=== PATIENT | male | born 1960 | race Caucasian/White ===

== ENCOUNTER 2024-10-22 00:51 | Inpatient (IN) | payer BC, SELFPAY ==
[2024-10-22] VITALS (20 sets, daily range): BP systolic 121–151; BP diastolic 77–90; PULSE 50–68; RESP 18–28; TEMP 36.2–36.6; O2SAT 85–92; BMI 25.8; BMI 25.2
--- OUTSIDE RECORDS SUMMARY | 2024-10-22 00:53 | XMS_ITS | Clinical Summary ---
Author Organization [facility] Address [place], [place] [address] Care Team Providers Care Customer Experience Intern Name Role Phone Pcp, No Primary Care Provider Unavailabl e Allergies No known active allergies Medications CPAPIndications :LAURENCE (obstructive sleep apnea) CPAP machine for home use at pressure:10 cm/H2O, Heated humidifier x 1 every 5 years, Humidifier chamber x 1 every 6 months, Full face mask with cushion x 1 every 3 months, Full face cushion 1 every month, 1 headgear 1 every 6 month, standard tubing x 1 every 3 months, Filters: Disposable filter x 2 a month, non-disposable filters x1 every 6 months; chinstrap 1 every 6 months Length of Need: 99 months, Frequency of use: Daily 1 Device 11 0 Active CPAPIndications :Obstructive sleep apnea CPAP machine for home use at pressure: 10 cmw , Heated humidifier x 1 q 5 yr, Humidifier chamber x 1 q 6 mo, Full face mask x1 q 3mos, with cushion x 1 q mo, Heated tubing x 1 q 3 mo, Headgear x 1 q 6 mo, Filters: Disposable x 2 q mo non-disposable filters x1 q 6mo, Length of Need: 99 months, Frequency of use: Daily 1 Device 11 0 Active Active Problems Problem Noted Date Diagnosed Date LAURENCE 04/26/2009 AHI-40 07/23/2009 Tobacco use disorder 04/13/2009 Allergic rhinitis, cause unspecified 04/13/2009 Immunizations Name Administration Dates Next Due Td (Age >=7 Years) 02/05/2009 Family History Medical History Relation Name Comments Good Health Brother Good Health Father Good Health Mother Good Health Sister Relation Name Status Comments Brother Alive Father Alive Maternal Grandfather diabete s Maternal Grandmother pancrea tic cancer? Mother Paternal Grandfather lung ca ncer Paternal Grandmother unsure Sister Alive Social History Tobacco Use Types Packs/Day Years Used Date Smoking Tobacco: Every Day Cigarettes 1 30 Started: 06/07/1979; Last attempted to quit: 06/07/2009 Smokeless Tobacco: Never Tobacco Cessation:Ready to Q uit: Yes; Counseling Given: Yes Comments:started again Alcohol Use Standard Drinks/Week Comments Yes 0 (1 standard drink = 0.6 oz pur e alcohol) 2-3 drinks a month PHQ-2 Answer Date Recorded PHQ-2 Score 2 11/06/2018 Social Connections Answer Date Recorded Frequency of Communication with Friends and Fami ly Not on file 09/07/2021 Financial Resource Strain Answer Date R ecorded Difficulty of Paying Living Expenses Not on file 09/07/2021 Difficulty of Paying Living Expenses Not on file 09/07/2021 Sex and Gender Information Value Date Recorded Sex Assigned at Not on file Legal Sex Male 5:24 AM SQL REPORT ANALYST Gender Identity Not on file Sexual Orientation Not on file 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 Not on file Not on file Obstetrics History Last Filed Vital Signs Vital Sign Reading Time Taken Comments Blood Pressure 120/64 10/27/2019 7:35 AM SQL REPORT ANALYST Pulse 62 10/27/2019 7:35 AM SQL REPORT ANALYST Temperature 36.6 C (97.8 F) 10/27/2019 7:35 AM SQL REPORT ANALYST Respiratory Rate 12 12/11/2017 10:3 7 AM CDT Oxygen Saturation 98% 10/27/2019 7:35 AM SQL REPORT ANALYST Inhaled Oxygen Concentration - - Weight 72.5 kg (159 lb 12.8 oz) 10/27/2019 7:35 AM SQL REPORT ANALYST Height 167 cm (5' 5.75) 08/26/2019 8:25 AM SQL REPORT ANALYST Body Mass Index 25.99 08/26/2019 8:25 AM SQL REPORT ANALYST Plan of Treatment Health Maintenance Due Date Last Done Comments Tdap 1973 HIV for age 15-65 1977 Hepatitis C screening for age 18-79 1980 Colonoscopy through age 75 11/20/2007 Pneumococcal series for age 50+ (1 of 1 - PCV) 2012 Zoster (shingles) series for age 50+ (1 of 2) 2012 Lipids for age 45-75 04/24/2014 04/24/2009 Depression screening for age 12+ 12/11/2018 12/11/2017 Tetanus booster 02/05/2019 02/05/2009 BMI (ht and wt on same day) for age 18+ 08/26/2020 08/26/2019, 12/11/2017, 08/17/2017, Additional history exists COVID-19 vaccine series (2023- season) 2024 Influenza for age 50-64 05/08/2024 RSV vaccine for adults or (1 - 1-dose 75+ series) 2037 Pneumococcal series for age 6-49 Aged Out No longer eligible based on patient's age to complete this topic Procedures Procedure Name Priority Date/Time Associated Diagnosis Comments LIPID PANEL W REFLEX MEASURED LDL Routine 04/24/2009 7:52 AM CDT Lipid Screening from Last 3 Months or Most Recently Relevant to Health Maintenance Results * (ABNORMAL) LIPID PANEL W REFLEX MEASURED LDL (04/24/2009 7:52 AM CDT) CHOLESTEROL,TOTAL 177 110 - 199 mg/dL [facility] TRIGLYCERIDES 91 <150 mg/dL [facility] HDL CHOLESTEROL 39(L) >40 mg/dL [facility] CHOL/HDL RATIO 4.54(H) <4.51 [facility] LDL CHOLESTEROL 120 <131 mg/dL [facility] PATIENT STATUS Fasting [facility] Blood specimen (specimen) BLOOD SPECIMEN / Unknown 04/24/2009 7:52 AM CDT 04/24/2009 7:47 AM CDT us Salima Tidwell DO CHEMISTRY Final Resu lt [facility] [address] [place] [address] from Last 3 Months or Most Recently Relevant to Health Maintenance Insurance [employer] Care Teams Customer Experience Intern Relationship Specialty Start Date End Date Pcp, No . PCP - General 11/03/13
--- NOTE | 2024-10-22 01:09 | ED.GENADULT ---
HPI - General Adult General Date Seen: 10/22/24 Chief complaint: Shortness of Breath/Dyspnea Stated complaint: Difficulty breathing, bronchitis Time Seen by Provider: 10/22/24 00:54 History of Present Illness HPI narrative: Patient is a 63-year-old male here with his for evaluation of cough and difficulty breathing. He has been having problems for couple of weeks now, initially had fevers reported though he is not sure of what his actual temperature was. He has a nonproductive cough, was seen in urgent care 4 days ago, diagnosed with bronchitis and put on azithromycin, prednisone and given an inhaler. He reports no improvement with those medications, in fact he feels like he is more short of breath. He has been sleeping sitting completely upright because when he lays down he feels like he can not breathe. He has not had any lower extremity swelling or pain, has not had any pleuritic chest pain, no exertional chest pain, no continued fevers. He quit smoking a few weeks ago, he notes that he quit smoking a couple of months ago and felt really poorly after that so he about a pack of cigarettes and felt improved, but says he has not resumed smoking after this last bout of quitting. He denies prior history of asthma, COPD, or cardiovascular disease. He denies any medications. Related Data Previous Rx's ?Medication ?Instructions ?Recorded albuterol sulfate 90 mcg/actuation 2 puff inhalation Q6H PRN 10/18/24 aerosol inhaler shortness of breath or wheezing #8.5 grams azithromycin 250 mg tablet See Rx Instructions PO .COMPLEX #6 10/18/24 tabs prednisone 20 mg tablet 40 mg (2 x 20 mg) PO QDAY 5 days 10/18/24 #10 tabs Allergies Allergy/AdvReac Type Severity Reaction Status Date / Time No Known Drug Allergies Allergy Verified 10/18/24 13:21 Review of Systems Status of ROS: Reports: 10 or more systems reviewed and unremarkable except as noted in History and below PFSH PFS Social History Smoking Status: Former smoker What tobacco products do you use: cigarettes Smoking packs per day: 2 Smoking cigarettes per day: 40.0 Years smoked: 40 Smoking pack-years: 80.00 Smoking quit date/years: <= 15 years ago Do you use any of these nicotine containing products: None Second hand tobacco smoke exposure: No How often do you have a drink containing alcohol: never How often do you have six or more drinks on one occasion: Never AUDIT-C Alcohol total score: 0 Non-prescribed substance use: denies use service: No Exam Narrative: Exam Narrative: Vital signs reviewed In general, alert, nontoxic male. He is sitting upright, breathing comfortably. Head: Normocephalic, atraumatic. Eyes: Sclera clear. Pupils equal and reactive. ENT: Mucous membranes moist. Neck: Supple without adenopathy. Heart: Regular rate and rhythm without murmur. Lungs: He has a few crackles at his left base. Overall breath sounds are little bit diminished but not markedly so. There is no wheezing, no increased work of breathing. Abdomen: Soft, nontender to palpation. Extremities: Well perfused, pulses intact. No significant edema. Neurologic: Alert, conversant. Speech fluent, face symmetric. Moves all extremities equally. Skin: Warm, dry well perfused. Affect: Normal. Const: Vital Signs, click to edit/add: Vital Signs - 24 hr 10/22/24 00:54 10/22/24 01:00 10/22/24 01:05 Temperature 97.8 F 97.8 F Pulse Rate [Right Radial] 53 L 53 L Respiratory Rate 28 H 28 H Blood Pressure [Ri ght Upper Arm] 144/90 H 144/90 H Pulse Oximetry 88 85 L 91 Oxygen Delivery Me thod Room Air Room Air Oxygen Flow Rate 10/22/24 01:07 10/22/24 01:08 10/22/24 01:17 Temperature Pulse Rate [Right Radial] Respiratory Rate Blood Pressure [Ri ght Upper Arm] Pulse Oximetry 88 88 89 Oxygen Delivery Me thod Room Air Nasal Cannula Nasal Cannula Oxygen Flow Rate 1 2 Course Course ED Course: He is noted to be hypoxic here with O2 sats in the 85-88% on room air. His lungs are relatively clear, I do not hear significant bronchospasm. Will evaluate more broadly for pneumonia, congestive heart failure, PE, or other possible contributors. It is possible that he has residual effects after influenza or other viral process, recent smoking cessation may be contributing as well. Will try DuoNeb here, of hypoxia is not improved may need admission for oxygenation until improving. Chest x-ray by my review did not show consolidation. Radiology reads this as showing a little bit of basilar atelectasis no other acute findings. He was positive for flu A. His labs otherwise are all reviewed and only pertinent findings are mildly elevated CRP of 2.6. His troponin D-dimer both negative. I gave him a DuoNeb, this did not improve his oxygenation. He does feel significantly better on 2 L of oxygen which brought his O2 sats to 91-92%. I suspect he has some underlying COPD with an exacerbation related to his recent influenza. I gave him Solu-Medrol here. He is not improved on home therapies I do think would benefit from admission for oxygen therapy. I think continuing his azithromycin make sense from an antibiotic standpoint, I do not see evidence here of a significant bacterial consolidation. He does not have a fever or an elevated white blood cell count. Discussed with [facility] for admission to the hospitalist service. Vital Signs Vital signs: Initial Vital Signs Temperature 97.8 F 10/22/24 00:54 Temperature Source Temporal Artery Scan 10/22/24 00:54 Pulse Rate 53 L 10/22/24 00:54 Pulse Rhythm Regular 10/22/24 00:54 Respiratory Rate 28 H 10/22/24 00:54 Blood Pressure 144/90 H 10/22/24 00:54 Blood Pressure Mean 108 H 10/22/24 00:54 Pulse Oximetry 88 10/22/24 00:54 Oxygen Delivery Method Room Air 10/22/24 00:54 Vital Signs Temperature 97.8 F 10/22/24 00:54 Pulse Rate 53 L 10/22/24 00:54 Respiratory Rate 28 H 10/22/24 00:54 Blood Pressure 144/90 H 10/22/24 00:54 Pulse Oximetry 88 10/22/24 00:54 Oxygen Delivery Method Room Air 10/22/24 00:54 Temperature 97.8 F 10/22/24 01:00 Pulse Rate 53 L 10/22/24 01:00 Respiratory Rate 28 H 10/22/24 01:00 Blood Pressure 144/90 H 10/22/24 01:00 Pulse Oximetry 89 10/22/24 01:17 Oxygen Delivery Method Nasal Cannula 10/22/24 01:17 Oxygen Flow Rate 2 10/22/24 01:17 Medications Administered Medications: Generic Name Dose Route Start Last Admin Trade Name Freq PRN Reason Stop Dose Admin Albuterol/Ipratropium 1 neb 10/22/24 01:14 10/22/24 01:22 Iprat-Albut 0.5-2.5 Mg/3 Ml Neb IH 10/22/24 01:15 1 neb ONCE ONE Administration Medical Decision Making Lab Data Lab results reviewed: Yes I reviewed the patient's lab results Labs: Lab Results 10/22/24 10/22/24 Range/Units 00:15 01:06 WBC 10.59 (4.50-11.00) K/uL RBC 5.01 (4.30-5.90) m/uL Hgb 14.9 (13.5-17.5) gm/dL Hct 43.8 (37.0-53.0) % MCV 87 (80-100) fL MCH 30 (26-34) pg MCHC 34 (32-36) gm/dL RDW Coeff of Radha 12.4 (11.5-15.5) % Plt Count 345 (140-440) K/uL Neut % (Auto) 75.0 H (42.0-72.0) % Lymph % (Auto) 14.4 L (20-44) % Parke % (Auto) 9.4 (0.0-11.0) % Eos % (Auto) 0.0 (0.0-7.0) % Baso % (Auto) 0.1 (0.0-3.0) % Neut # (Auto) 7.90 H (1.7-7.0) K/uL Lymph # (Auto) 1.50 (0.90-2.90) K/uL Parke # (Auto) 1.00 H (0.00-0.90) K/UL Eos # (Auto) 0.00 (0.00-0.50) K/uL Baso # (Auto) 0.01 (0.00-0.30) K/uL Abs Immat Gran (auto) 0.12 (0.00-0.30) K/uL Imm/Tot Granulo (auto) 1.1 % D-Dimer Quant (PE/DVT) 0.35 (0.00-0.50) ug/ml VBG pH 7.461 H (7.32-7.43) VBG pCO2 33 L (40-50) mmHG VBG pO2 42.6 (25-47) mmHG VBG HCO3 24 (21-28) mmol/L Sodium 139 (135-149) mmol/L Potassium 3.9 (3.6-5.1) mmol/L Chloride 107 (96-114) mmol/L Carbon Dioxide 22 (20-32) mmol/L Anion Gap 10 (7-15) mEq/L BUN 26 (7-30) mg/dL Creatinine 1.0 (0.5-1.5) mg/dL Estimated Creat Clear 70.00 Estimated GFR 86 ml/min Glucose 113 (60-115) mg/dL Calcium 9.2 (8.4-10.6) mg/dL C-Reactive Protein 2.6 H (0.5-1.0) mg/dL NT-Pro-B Natriuret Pep 221 pg/mL SARS-CoV-2 (PCR) Negative SARS-CoV-2 (Negative) Influenza Type A (PCR) POSITIVE PCR FLU A A (Negative) Influenza Type B (PCR) Negative PCR FLU B (Negative) RSV (PCR) Negative PCR RSV (Negative) POC Troponin I 0.00 L (0.01-0.04) ng/ml Imaging Data Chest x-ray: Attestation: I have reviewed the pertinent imaging results. Radiologist's impression: Patient: Dao Malhotra MR#: [id number] : 1960 Acct:[id number] Loc: ED Service Date: 10/22/[address]: Ordering Physician: Marcia Khan M.D. Date of Service: 10/22/24 Procedure(s): XR chest 2V Accession Number(s): [id number] cc: Marcia Khan M.D.; Provider,Not a Local~ For Patients: As a result of the Cures Act, medical imaging exams and procedure reports are released immediately into your electronic medical record. You may view this report before your referring provider. If you have questions, please contact your health care provider. INDICATION: Shortness of breath. TECHNIQUE: Chest 2 views. COMPARISON: 10/18/2024. FINDINGS: Cardiovascular and mediastinum: Heart size and vasculature are normal in caliber and appearance. Lungs and pleural spaces: Mild bibasilar atelectasis. No consolidation. No pleural effusion or pneumothorax. Bones and soft tissues: Unremarkable for age. IMPRESSION: Mild bibasilar atelectasis. No consolidation. Dictated by Paolo Lehman MD @ 10/22/2024 1:36:07 AM Discharge Plan Discharge Clinical Impression: Hypoxic, Influenza A Patient Disposition: Admitted As Observation
[2024-10-22] MEDS: IPRAT-ALBUT 0.5-2.5 MG/3 ML NEB 1 NEB IH ×3 (01:22→11:36)
[2024-10-22 01:28] LABS: HCO3 VBG 24 mmol/L (21-28); PCO2 VBG 33 mmHG (40-50); PO2 VBG 42.6 mmHG (25-47); pH VBG 7.461 (7.32-7.43)
[2024-10-22 01:32] LABS: Basophils Absolute Auto 0.01 K/uL (0.00-0.30); Basophils Percent Auto 0.1 % (0.0-3.0); Hematocrit 43.8 % (37.0-53.0); Hemoglobin* 14.9 gm/dL (13.5-17.5); Immature Granulocytes Abs Auto 0.12 K/uL (0.00-0.30); Immature Granulocytes Pct Auto 1.1 %; Lymphocytes Percent Auto 14.4 % (20-44); Mean Corpuscular HGB Conc 34 gm/dL (32-36); Mean Corpuscular Hemoglobin 30 pg (26-34); Mean Corpuscular Volume 87 fL (80-100); Monocytes Percent Auto 9.4 % (0.0-11.0); Platelet Count* 345 K/uL (140-440); RDW Coefficient of Variation % 12.4 % (11.5-15.5); Red Blood Count 5.01 m/uL (4.30-5.90); White Blood Count* 10.59 K/uL (4.50-11.00)
--- OUTSIDE RECORDS SUMMARY | 2024-10-22 01:33 | XMS_ITS | Clinical Summary ---
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 Not on file Obstetrics History Last Filed Vital Signs Vital Sign Reading Time Taken Comments Blood Pressure 120/64 10/27/2019 7:35 AM CISCO UNIFIED COMMUNICATIONS ENGINEER Pulse 62 10/27/2019 7:35 AM CISCO UNIFIED COMMUNICATIONS ENGINEER Temperature 36.6 C (97.8 F) 10/27/2019 7:35 AM CISCO UNIFIED COMMUNICATIONS ENGINEER Respiratory Rate 12 12/11/2017 10:3 7 AM CDT Oxygen Saturation 98% 10/27/2019 7:35 AM CISCO UNIFIED COMMUNICATIONS ENGINEER Inhaled Oxygen Concentration - - Weight 72.5 kg (159 lb 12.8 oz) 10/27/2019 7:35 AM CISCO UNIFIED COMMUNICATIONS ENGINEER Height 167 cm (5' 5.75) 08/26/2019 8:25 AM CISCO UNIFIED COMMUNICATIONS ENGINEER Body Mass Index 25.99 08/26/2019 8:25 AM CISCO UNIFIED COMMUNICATIONS ENGINEER Plan of Treatment Health Maintenance Due Date [...] CHOLESTEROL,TOTAL 177 110 - 199 mg/dL [facility] TRIGLYCERIDES 91 <150 mg/dL [facility] HDL CHOLESTEROL 39(L) >40 mg/dL [facility] CHOL/HDL RATIO 4.54(H) <4.51 [facility] LDL CHOLESTEROL 120 <131 mg/dL [facility] PATIENT STATUS Fasting [facility] Blood specimen (specimen) BLOOD SPECIMEN / Unknown 04/24/2009 7:52 AM CDT 04/24/2009 7:47 AM CDT us Salima Tidwell DO CHEMISTRY Final Resu lt [facility] [address] [place] [address] from Last 3 Months or Most Recently Relevant to Health Maintenance Insurance [employer] Care Teams County Historian Relationship Specialty Start Date End Date Pcp, No . PCP - General 11/03/13
[2024-10-22 01:43] LABS: Chloride* 107 mmol/L (96-114); Potassium* 3.9 mmol/L (3.6-5.1); Sodium* 139 mmol/L (135-149)
[2024-10-22 01:45] LABS: Estimated Glomerular Filt Rate 86 ml/min
[2024-10-22 01:46] LABS: Anion Gap 10 mEq/L (7-15); Blood Urea Nitrogen* 26 mg/dL (7-30); Carbon Dioxide* 22 mmol/L (20-32); Glucose* 113 mg/dL (60-115)
[2024-10-22 01:47] LABS: Calcium* 9.2 mg/dL (8.4-10.6); Slide Review Reflex No
[2024-10-22 01:49] LABS: C Reactive Protein* 2.6 mg/dL (0.5-1.0)
[2024-10-22 01:56] LABS: D Dimer Quantitative* 0.35 ug/ml (0.00-0.50)
[2024-10-22 01:57] LABS: NT Pro B Type NatriureticPept* 221 pg/mL
[2024-10-22 02:11] LABS: PCR FLU A POSITIVE PCR FLU A (Negative); PCR FLU B Negative PCR FLU B (Negative); PCR RSV Negative PCR RSV (Negative); SARS PCR* Negative SARS-CoV-2 (Negative)
[2024-10-22] MEDS: METHYLPREDNISOLONE SOD SUCC 62.5 MG/ML (125) 125 MG IVP (02:41)
--- NOTE | 2024-10-22 03:09 | W.PM.TELEH&P ---
Telehealth- H&P: HPI History of Present Illness Date Seen: 10/22/24 Chief complaint: Difficulty breathing, bronchitis Narrative: Dao Malhotra is seen as an Interactive Telehealth visit. Dao Malhotra is a 63 year old male with history significant for smoking 2 packs/day x 40 years, who does not regularly follow-up with a doctor, presenting to emergency department with 2 weeks history of cough and shortness of breath. Patient reports his symptoms initially started with fever chills and cough about 2 weeks ago. He says initially the cough was pretty intense however currently is more dry. He says he noticed fever and chills in the first 2 days however has been afebrile since then. He says I have quit smoking since I got sick. He did go to urgent care on October 18, 2024 with complaints of cough and shortness of breath. At that time he was started on prednisone 40 mg, azithromycin and inhaler. He states his shortness of breath continued to get worse. He was also having chest pain with cough. He came into the emergency department for further evaluation. In the ER he was noted to be hypoxic with pulse ox in 85%. He was placed on 2 L oxygen and after that he felt a lot better. He was also given DuoNebs, Solu-Medrol in the emergency department. Workup in the emergency department showed WBC 10.5, hemoglobin 14.9, hematocrit 43.8, platelets 345. Blood gas showed VBG with pH of 7.461, pCO2 33, pO2 42, BMP showed sodium 139, potassium 3.9, chloride 107, bicarb 22, anion gap 10, BUN 26, creatinine 1.0, glucose 113, calcium 9.2, CRP 2.6, proBNP 221. His nasal swab came back positive for influenza A and negative for SARS-CoV-2, influenza B, RSV. Chest x-ray showed mild bibasilar atelectasis. No consolidation. Hospitalist service was asked admit the patient due to new onset hypoxia and ongoing tachypnea and shortness of breath. Review of Systems Narrative: Complete ROS was performed, pertinent positives and negatives per HPI. [facility] Social History (Updated 10/22/24 @ 02:37 by Marcia Khan MD) What is your current living situation?: I presently have a place to live Problems where you live: no known problems Problems where you live details: N/A In the past 12 months, utilities in danger of being shut off: no In past 12 months, lack of transportation kept you from medical appts, meetings, work, or getting things needed for daily living: no In the past 12 mos, have been you worried that your food would run out before you had money to buy more?: never true In the past 12 mos, the food you bought just didn't last and you didn't have money to buy more?: never true Highest level of school completed/degree received: high school graduate Smoking Status: Former smoker What tobacco products do you use: cigarettes Smoking packs per day: 2 Smoking cigarettes per day: 40.0 Years smoked: 40 Smoking pack-years: 80.00 Smoking quit date/years: <= 15 years ago Do you use any of these nicotine containing products: None Second hand tobacco smoke exposure: No How often do you have a drink containing alcohol: never How often do you have six or more drinks on one occasion: Never AUDIT-C Alcohol total score: 0 Non-prescribed substance use: denies use How often does anyone, including family, friends and others, physically hurt you: never How often does anyone, including family, friends and others, insult or talk down to you: never How often does anyone, including family, friends and others, threaten you with harm: never How often does anyone, including family, friends and others, scream or curse at you: never service: No Meds Home Medications and Allergies Allergies Allergy/AdvReac Type Severity Reaction Status Date / Time No Known Drug Allergies Allergy Verified 10/18/24 13:21 Exam Narrative Exam Narrative: Physical Exam GENERAL: ?vital signs reviewed. He appears in no acute distress. Able to talk in full sentences. HEENT: pupils are equal round and reactive to light NECK: Supple HEART: Regular rate and rhythm without any rubs, murmurs, or gallops. LUNGS: Clear to auscultation bilaterally with good air movement throughout ABDOMEN: Observation from nurse assisted exam, abdomen appears soft, nontender, and nondistended with Positive bowel sounds noted. EXTREMITIES: Strength and sensation is observed to be grossly within normal limits in the upper and lower extremities.? No focal strength deficit is observed. SKIN:? Observed warm and dry with color normal Const Vital Signs, click to edit/add: Vital Signs - 24 hr 10/22/24 00:54 10/22/24 01:00 10/22/24 01:05 Temperature 97.8 F 97.8 F Pulse Rate [Right Radial] 53 L 53 L Respiratory Rate 28 H 28 H Blood Pressure [Left Radial Artery] Blood Pressure [Right Upper Arm] 144/90 H 144/90 H Pulse Oximetry 88 85 L 91 Oxygen Delivery Method Room Air Room Air Oxygen Flow Rate 10/22/24 01:07 10/22/24 01:08 10/22/24 01:17 Temperature Pulse Rate [Right Radial] Respiratory Rate Blood Pressure [Left Radial Artery] Blood Pressure [Right Upper Arm] Pulse Oximetry 88 88 89 Oxygen Delivery Method Room Air Nasal Cannula Nasal Cannula Oxygen Flow Rate 1 2 10/22/24 02:52 10/22/24 02:52 10/22/24 02:54 Temperature 97.8 F 97.8 F Pulse Rate [Right Radial] 60 Respiratory Rate 28 H 24 28 H Blood Pressure [Left Radial Artery] 151/86 H Blood Pressure [Right Upper Arm] 135/88 Pulse Oximetry 90 91 89 Oxygen Delivery Method Nasal Cannula Nasal Cannula Nasal Cannula Oxygen Flow Rate 2 2 2 10/22/24 02:55 Temperature 97.8 F Pulse Rate [Right Radial] 60 Respiratory Rate 24 Blood Pressure [Left Radial Artery] Blood Pressure [Right Upper Arm] 135/88 Pulse Oximetry Oxygen Delivery Method Oxygen Flow Rate Hospitalist - H&P: Result Labs Labs: Short CBC 10/22/24 Range/Units 01:06 WBC 10.59 (4.50-11.00) K/uL Hgb 14.9 (13.5-17.5) gm/dL Hct 43.8 (37.0-53.0) % Plt Count 345 (140-440) K/uL BMP 10/22/24 01:06 Sodium 139 Potassium 3.9 Chloride 107 Carbon Dioxide 22 BUN 26 Creatinine 1.0 Glucose 113 Calcium 9.2 Assessment and Plan Assessment and plan (1) Influenza A: Status: Acute (2) Hypoxic: Status: Acute Plan Pt is 63 y/o M with h/o significant for Nicotine dependence, 2PPD x 40 years, presented to ED with c/o sob and cough. He was found to be hypoxic to 85%. # Influenza A Pneumonia # Acute hypoxia # COPD exac - pt doesn't have a diagnosis of COPD however clinically it appears that he may have COPD due to extensive h/o smoking. - cont with duonebs prn, solumedrol 40 mg q12 hours. - start on ceftriaxone and doxy. - he is likely outside the window for tamiflu at this point. - anti tussive medications. - wean oxygen as tolerated. # DVT proph - SQH Total Time Spent Total Time Spent: 55 Telehealth: Statement Statement Telehealth Visit: Today's History and Physical is provided via interactive telehealth by Ary Ralph MD.? Patient is located at [facility].? Provider is located at [facility].? Nursing staff assisted with the patient's exam. The visit being done today meets criteria for a telehealth visit and the patient or patient?s parent/guardian is aware the visit is a telehealth visit. Camera Start Time: 03:16 Camera End Time: 03:30
[2024-10-22] MEDS: BENZONATATE 100 MG CAPSULE PO (04:40)
[2024-10-22] MEDS: HEPARIN 5,000 UNIT/0.5 ML INJ 5000 UNIT SUBCUT ×2 (04:41→20:29)
[2024-10-22] MEDS: cefTRIAXone 2 GM in 0.9 % SODIUM CHLORIDE Mini-bag 100 ML IVPB (04:42)
[2024-10-22] MEDS: SODIUM CHLORIDE 0.9 % (FLUSH) 10 ML SYRINGE 5 ML IVF ×3 (04:51→20:29)
[2024-10-22] MEDS: 0.9 % SODIUM CHLORIDE 250 ml IV (04:53)
--- NOTE | 2024-10-22 05:11 | PC.NURSE ---
Shift note: Patient arrived on the floor at 0245 by a wheelchair. Alert and oriented on arrival. Reported of persistent dry cough and SOB for the past 4 days. O2 on arrival was 85% on RA. 2L of oxygen was set up to maintain the O2 above 90%. MD review through [facility] at 0345. Ipratropium neb and Benzonatate was given for cough SOB. Droplet precaution in place for influenza A infection. HOB elevated to about 45 degrees. Vitally stable. Pt has been in bed throughout the night. He had hard time sleeping. Other due medications given and charted.
[2024-10-22 08:12] LABS: Procalcitonin* 0.06 ng/mL (<0.50)
--- NOTE | 2024-10-22 08:35 | PM.IMPN1 ---
Progress Note: A&P Assessment and plan (1) Acute hypoxemic respiratory failure: Problem details: - likely multifactorial including influenza a, possible pneumonia, possible undiagnosed COPD (patient is a current 2 pack-a-day smoker for 40 years) - respiratory consult - supplemental oxygen to keep O2 sats around 90%, I reviewed his blood gas 1:00 a.m. which does not show any hypercapnia. Monitor for hypercapnia or symptoms of hypercapnia - Continue prn nebs Status: Acute (2) Influenza A: Problem details: - start tamiflu Status: Acute (3) Influenza with pneumonia: Problem details: No consolidations seen on x-ray, but patient is persistently hypoxic. Per patient this is day 7 of illness. White count is within normal limits and procalcitonin is not elevated. He was started on ceftriaxone and doxycycline overnight for presumed pneumonia. While I suspect this is a viral pneumonia, not bacterial, will continue IV antibiotics for total of 3 days if there is no indication to extend them. He was also started on methylprednisolone. Will transition to prednisone. Status: Suspected (4) Nicotine abuse: Problem details: - 2PPD x 40 years - stopped smoking when became ill last week. If develops cravings, will start nicotine patch Status: Acute Plan VTE prophylaxis with low-dose subcut heparin. Subjective Time Seen by Provider: 07:41 Date Seen: 10/22/24 Interval history: Uche continues to feel mildly dyspneic, weak, and poor appetite. No new complaints or concerns. Uche reports that he has been sick for 7 days. Exam Narrative: Exam Narrative: General: No acute distress. Appears unwell, but nontoxic. Awake, alert, oriented x3. No pallor. No jaundice. Mild bilateral conjunctivitis. Oropharynx: Clear. Mucous membranes moist. Cardiovascular: Regular rate and rhythm. No murmurs, gallops, or rubs. Respiratory: Course with rhonchi at the left lower lung field. No wheezes. Abdomen: Bowel sounds present. Soft, nondistended, nontender. Extremities: No lower extremity edema. Extremities are warm with good capillary refill. Const: Vital Signs, click to edit/add: Vital Signs - 24 hr 10/22/24 00:54 10/22/24 01:00 10/22/24 01:05 Temperature 97.8 F 97.8 F Pulse Rate [Right Radial] 53 L 53 L Respiratory Rate 28 H 28 H Blood Pressure [Le ft Radial Artery] Blood Pressure [Ri ght Upper Arm] 144/90 H 144/90 H Pulse Oximetry 88 85 L 91 Oxygen Delivery Me thod Room Air Room Air Oxygen Flow Rate 10/22/24 01:07 10/22/24 01:08 10/22/24 01:17 Temperature Pulse Rate [Right Radial] Respiratory Rate Blood Pressure [Le ft Radial Artery] Blood Pressure [Ri ght Upper Arm] Pulse Oximetry 88 88 89 Oxygen Delivery Me thod Room Air Nasal Cannula Nasal Cannula Oxygen Flow Rate 1 2 10/22/24 02:52 10/22/24 02:52 10/22/24 02:54 Temperature 97.8 F 97.8 F Pulse Rate [Right Radial] 60 Respiratory Rate 28 H 24 28 H Blood Pressure [Le ft Radial Artery] 151/86 H Blood Pressure [Ri ght Upper Arm] 135/88 Pulse Oximetry 90 91 89 Oxygen Delivery Me thod Nasal Cannula Nasal Cannula Nasal Cannula Oxygen Flow Rate 2 2 2 10/22/24 02:55 10/22/24 07:50 Temperature 97.8 F 98 F Pulse Rate [Right Radial] 60 Respiratory Rate 24 24 Blood Pressure [Le ft Radial Artery] 121/78 Blood Pressure [Ri ght Upper Arm] 135/88 Pulse Oximetry 90 Oxygen Delivery Me thod Nasal Cannula Oxygen Flow Rate 2 Labs Labs: Laboratory Results - last 24 hr 10/22/24 10/22/24 10/22/24 00:15 01:06 07:30 WBC 10.59 RBC 5.01 Hgb 14.9 Hct 43.8 MCV 87 MCH 30 MCHC 34 RDW Coeff of Radha 12.4 Plt Count 345 Neut % (Auto) 75.0 H Lymph % (Auto) 14.4 L Harding % (Auto) 9.4 Eos % (Auto) 0.0 Baso % (Auto) 0.1 Neut # (Auto) 7.90 H Lymph # (Auto) 1.50 Harding # (Auto) 1.00 H Eos # (Auto) 0.00 Baso # (Auto) 0.01 Abs Immat Gran (auto) 0.12 Imm/Tot Granulo (auto) 1.1 D-Dimer Quant (PE/DVT) 0.35 VBG pH 7.461 H VBG pCO2 33 L VBG pO2 42.6 VBG HCO3 24 Sodium 139 Potassium 3.9 Chloride 107 Carbon Dioxide 22 Anion Gap 10 BUN 26 Creatinine 1.0 Estimated Creat Clear 70.00 Estimated GFR 86 Glucose 113 Calcium 9.2 C-Reactive Protein 2.6 H NT-Pro-B Natriuret Pep 221 Procalcitonin 0.06 SARS-CoV-2 (PCR) Negative SARS-CoV-2 Influenza Type A (PCR) POSITIVE PCR FLU A A Influenza Type B (PCR) Negative PCR FLU B RSV (PCR) Negative PCR RSV POC Troponin I 0.00 L Ordering Physician: Marcia Khan M.D. Date of Service: 10/22/24 Procedure(s): XR chest 2V Accession Number(s): [id number] cc: Marcia Khan M.D.; Provider,Not a Local~ For Patients: As a result of the Cures Act, medical imaging exams and procedure reports are released immediately into your electronic medical record. You may view this report before your referring provider. If you have questions, please contact your health care provider. INDICATION: Shortness of breath. TECHNIQUE: Chest 2 views. COMPARISON: 10/18/2024. FINDINGS: Cardiovascular and mediastinum: Heart size and vasculature are normal in caliber and appearance. Lungs and pleural spaces: Mild bibasilar atelectasis. No consolidation. No pleural effusion or pneumothorax. Bones and soft tissues: Unremarkable for age. IMPRESSION: Mild bibasilar atelectasis. No consolidation. Dictated by Paolo Lehman MD @ 10/22/2024 1:36:07 AM (Electronically Signed)
[2024-10-22] MEDS: OSELTAMIVIR PHOSPHATE 75 MG CAPSULE PO ×2 (10:19→20:28)
[2024-10-22] MEDS: DOXYCYCLINE HYCLATE 100 MG PO ×2 (10:20→20:29)
--- NOTE | 2024-10-22 11:25 | RESP.RT ---
Pt seen. In bed watching TV. BBS diminished, but clear, no wheezing. 2L NC SPO2 89% PT says it is hard to catch his breath and it feels heavy. 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 Reports he wears a mask if he remembers. Pt would benefit from full out pt pulmonary work up, including PFTs. Plan to attempt to wean oxygen as tolerates, keeping SPO2 90-94 % at this time. RN has given pt aerobika. 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
[2024-10-22] MEDS: GUAIF/DM 200-20 MG/20 ML 118 ML LIQUID 5 ML PO (11:41)
--- NOTE | 2024-10-22 15:39 | RESP.RT ---
Pt has episodes where he becomes short of breath. ie going to and returning from bathroom. He notes to me that he cannot do a flight of stairs when he feels good. He needs to stopo and catch his breath. Looking like undiagnosed COPD with influenza A at this time. Keep SPO2 90-94%
[2024-10-22] MEDS: LORazepam 0.5 MG TABLET PO (20:29)
[2024-10-23 02:11] VITALS: BP 134/89; PULSE 58; RESP 18; TEMP 36.6; O2SAT 92
[2024-10-23] MEDS: cefTRIAXone 2 GM in 0.9 % SODIUM CHLORIDE Mini-bag 100 ML IVPB (04:28)
[2024-10-23 06:19] LABS: HCO3 VBG 22 mmol/L (21-28); PCO2 VBG 31 mmHG (40-50); PO2 VBG 59.3 mmHG (25-47); pH VBG 7.467 (7.32-7.43)
[2024-10-23 07:07] VITALS: PULSE 53
[2024-10-23] MEDS: NICOTINE 21 MG PATCH 1 PATCH TRANSDERMA (08:00)
[2024-10-23 08:15] VITALS: BP 134/102; PULSE 54; RESP 20; TEMP 36.6; O2SAT 92
[2024-10-23] MEDS: DOXYCYCLINE HYCLATE 100 MG PO ×2 (08:37→20:16)
[2024-10-23] MEDS: OSELTAMIVIR PHOSPHATE 75 MG CAPSULE PO ×2 (08:37→20:16)
[2024-10-23] MEDS: predniSONE 20 MG TABLET 40 MG PO (08:37)
[2024-10-23] MEDS: IPRAT-ALBUT 0.5-2.5 MG/3 ML NEB 1 NEB IH ×2 (08:38→15:12)
[2024-10-23] MEDS: HEPARIN 5,000 UNIT/0.5 ML INJ 5000 UNIT SUBCUT ×2 (08:38→20:15)
[2024-10-23] MEDS: ACETAMINOPHEN 325 MG TABLET 650 MG PO (09:46)
[2024-10-23] MEDS: SODIUM CHLORIDE 0.9 % (FLUSH) 10 ML SYRINGE 5 ML IVF ×2 (09:47→20:17)
[2024-10-23 12:30] VITALS: BP 126/79; PULSE 52; RESP 22; TEMP 36.6; O2SAT 91
[2024-10-23 15:00] VITALS: BP 131/80; PULSE 64; PULSE 65; RESP 22; TEMP 36.6; O2SAT 92
--- NOTE | 2024-10-23 16:47 | PM.IMPN1 ---
Progress Note: A&P Assessment and plan (1) Acute hypoxemic respiratory failure: Problem details: - likely multifactorial including influenza a, possible pneumonia, possible undiagnosed COPD (patient is a current 2 pack-a-day smoker for 40 years) - respiratory consult - supplemental oxygen to keep O2 sats around 90%, I reviewed his blood gas 1:00 a.m. which does not show any hypercapnia. Monitor for hypercapnia or symptoms of hypercapnia - Continue prn nebs - improving Status: Acute (2) Influenza A: Problem details: - continue tamiflu Status: Acute (3) Influenza with pneumonia: Problem details: No consolidations seen on x-ray, but patient is persistently hypoxic. Per patient this is day 7 of illness. White count is within normal limits and procalcitonin is not elevated. He was started on ceftriaxone and doxycycline overnight for presumed pneumonia. While I suspect this is a viral pneumonia, not bacterial, will continue IV antibiotics for total of 3 days if there is no indication to extend them. Continue prednisone burst. Status: Suspected (4) Nicotine abuse: Problem details: - 2PPD x 40 years - stopped smoking when became ill last week. - agitated last night, nicotine patch started, but patient complained that these cause dizziness and requested that it be discontinued. Status: Acute Plan VTE prophylaxis with low-dose subcut heparin. Subjective Time Seen by Provider: 10:51 Date Seen: 10/23/24 Interval history: Uche tells me he is feeling a bit better today. He is less dyspneic. He refused to wear high-flow nasal cannula last night. We are attempting to wean oxygen today. Exam Narrative: Exam Narrative: General: No acute distress. Awake, alert, oriented x3. No pallor. No jaundice. Mild bilateral conjunctivitis, slightly improved. Oropharynx: Clear. Mucous membranes moist. Cardiovascular: Regular rate and rhythm. No murmurs, gallops, or rubs. Respiratory: Course with rhonchi at the left lower lung field. No wheezes. Abdomen: Bowel sounds present. Soft, nondistended, nontender. Const: Vital Signs, click to edit/add: Vital Signs - 24 hr 10/22/24 17:38 10/22/24 20:01 10/22/24 20:02 Temperature 98 F Pulse Rate Pulse Rate [Apical ] 60 Respiratory Rate 20 Blood Pressure [Le ft Radial Artery] 143/82 H Pulse Oximetry 92 Oxygen Delivery Me thod High Flow Nasal Ca nnula Oxygen Flow Rate Fraction of Inspir ed Oxygen 50 50 50 10/22/24 22:11 10/22/24 22:41 10/22/24 22:43 Temperature 97.1 F L Pulse Rate 50 L Pulse Rate [Apical ] 52 L 52 L Respiratory Rate 18 18 Blood Pressure [Le ft Radial Artery] 138/90 H Pulse Oximetry 92 Oxygen Delivery Me thod Nasal Cannula Oxygen Flow Rate 2 Fraction of Inspir ed Oxygen 10/22/24 22:45 10/23/24 02:11 10/23/24 07:07 Temperature 98 F Pulse Rate 53 L Pulse Rate [Apical ] 58 L Respiratory Rate 18 18 Blood Pressure [Le ft Radial Artery] 134/89 Pulse Oximetry 92 92 Oxygen Delivery Me thod Nasal Cannula Nasal Cannula Oxygen Flow Rate 2 2 Fraction of Inspir ed Oxygen 10/23/24 08:15 10/23/24 08:15 10/23/24 08:15 Temperature 97.8 F Pulse Rate Pulse Rate [Apical ] 54 L 54 L Respiratory Rate 20 20 20 Blood Pressure [Le ft Radial Artery] 134/102 H Pulse Oximetry 92 92 Oxygen Delivery Me thod Nasal Cannula Nasal Cannula Oxygen Flow Rate 2 2 Fraction of Inspir ed Oxygen 10/23/24 12:30 10/23/24 15:00 Temperature 98 F Pulse Rate 64 Pulse Rate [Apical ] 52 L Respiratory Rate 22 Blood Pressure [Le ft Radial Artery] 126/79 Pulse Oximetry 91 Oxygen Delivery Me thod Nasal Cannula Oxygen Flow Rate 1 Fraction of Inspir ed Oxygen Labs Labs: Laboratory Results - last 24 hr 10/23/24 05:50 VBG pH 7.467 H VBG pCO2 31 L VBG pO2 59.3 H VBG HCO3 22
[2024-10-23 21:25] VITALS: BP 148/85; PULSE 57; RESP 22; TEMP 36.2; O2SAT 91
[2024-10-23] MEDS: LORazepam 0.5 MG TABLET PO (21:41)
[2024-10-24] VITALS (10 sets, daily range): BP systolic 128–151; BP diastolic 73–96; PULSE 42–65; RESP 16–24; TEMP 35.9–36.4; O2SAT 91–96
[2024-10-24] MEDS: 0.9 % SODIUM CHLORIDE 250 ml IV (04:41)
[2024-10-24] MEDS: cefTRIAXone 2 GM in 0.9 % SODIUM CHLORIDE Mini-bag 100 ML IVPB (04:41)
[2024-10-24] MEDS: IPRAT-ALBUT 0.5-2.5 MG/3 ML NEB 1 NEB IH (07:22)
[2024-10-24] MEDS: ACETAMINOPHEN 325 MG TABLET 650 MG PO ×2 (07:46→21:24)
[2024-10-24] MEDS: predniSONE 20 MG TABLET 40 MG PO (07:46)
--- NOTE | 2024-10-24 07:54 | PC.NURSE ---
End of shift [id number] ? Pt alert and oriented, appears visibly fatigued. Breathing labored and SOB noted on exertion. Tolerating O2 at 1L via nasal cannula, pt able to maintain saturation between 88-92% per MD order. Pt independent in room, denies pain. Reported feeling ?tired? and requested sleeping aid. Medication given per NOV with pt observed to sleep. Appears to be resting comfortably at end of shift with call light within reach.
[2024-10-24] MEDS: DOXYCYCLINE HYCLATE 100 MG PO ×2 (08:40→21:15)
[2024-10-24] MEDS: HEPARIN 5,000 UNIT/0.5 ML INJ 5000 UNIT SUBCUT (08:40)
[2024-10-24] MEDS: SODIUM CHLORIDE 0.9 % (FLUSH) 10 ML SYRINGE 5 ML IVF ×2 (08:40→21:16)
[2024-10-24] MEDS: OSELTAMIVIR PHOSPHATE 75 MG CAPSULE PO ×2 (08:40→21:15)
--- NOTE | 2024-10-24 10:30 | CRLHL7_ITS ---
For Patients: As a result of the Century Cures Act, medical imaging exams and procedure reports are released immediately into your electronic medical record. You may view this report before your referring provider. If you have questions, please contact your health care provider. Indication: PERSISTENT HYPOXIA POSSIBLE COPD OR FIBROSIS Technique: CTA chest, pulmonary embolism protocol, utilizing 95 mL Isovue 370 Comparison: None Findings: Motion degraded exam. No thyroid nodules. No thoracic lymphadenopathy. The heart is normal in size. No CT evidence of right heart strain. No pericardial effusion. LAD calcifications. The thoracic aorta and pulmonary artery are normal in caliber. There is no pulmonary embolism. There is no focal airspace consolidation, pleural effusion, or pneumothorax. Small cluster of likely infectious/inflammatory pulmonary nodules/small ground-glass opacities seen in the posterior aspect of the right upper lobe (series number 4, image [id number]). Calcified granuloma in the right middle lobe [id number] centrilobular and paraseptal emphysematous changes with upper lobe predominance. Minimal bibasilar linear atelectasis/scarring. The airways are clear. The imaged upper abdomen is unremarkable. The soft tissues and bones are unremarkable. Impression: 1. No pulmonary embolism. 2. Small cluster of likely infectious/inflammatory pulmonary nodules/small ground-glass opacities seen in the posterior aspect of the right upper lobe (series number 4, image [id number]). Recommend CT chest in approximately 10-12 weeks to assess for resolution. 3. [id number] centrilobular and paraseptal emphysematous changes with upper lobe predominance. Please note that all CT scans at this facility use dose modulation, iterative reconstruction, and/or weight-based dosing when appropriate to reduce radiation dose to as low as reasonably achievable. Dictated by Austin Arellano MD @ 10/24/2024 11:28:10 AM (Electronically Signed)
--- NOTE | 2024-10-24 15:42 | P.IMPN_ITS ---
Progress Note: A&P Assessment and plan (1) Acute hypoxemic respiratory failure: Problem details: - likely multifactorial including influenza a, possible pneumonia, possible undiagnosed COPD (patient is a current 2 pack-a-day smoker for 40 years) - respiratory consult - supplemental oxygen to keep O2 sats around 90%, I reviewed his blood gas 1:00 a.m. which does not show any hypercapnia. Monitor for hypercapnia or symptoms of hypercapnia - Continue prn nebs - improving, may need home oxygen due to chronic dyspnea and findings of emphysema suspect secondary to chronic tobacco use Status: Acute (2) Influenza A: Problem details: - continue tamiflu x 5 days total. Status: Acute (3) Influenza with pneumonia: Problem details: No consolidations seen on x-ray, but patient is persistently hypoxic. Per patient this is day 7 of illness. White count is within normal limits and procalcitonin is not elevated. He was started on ceftriaxone and doxycycline overnight for presumed pneumonia. While I suspect this is a viral pneumonia, not bacterial, will continue IV antibiotics for total of 3 days if there is no indication to extend them. Continue prednisone burst. Status: Suspected (4) Nicotine abuse: Problem details: - 2PPD x 40 years - stopped smoking when became ill last week. - spoke with patient and the (who also smokes) about tobacco cessation, potential medications, prescription and [id number] for tobacco cessation, changing habits and routines, and finding alternative things to do when having cravings. Spent 12 minutes discussing tobacco cessation. Status: Acute (5) Dilatation of aortic sinus of Valsalva: Problem details: -10/24/2024 4.3 cm on echocardiogram, annual outpatient follow-up Status: Acute (6) Emphysema lung: Problem details: - COPD, 80 pack-year smoker Status: Acute Plan VTE prophylaxis with low-dose subcut heparin. Time Spent With Patient Total time spent: Today I spent 50 minutes seeing the patient, talking with the patient and his family, reviewing [facility] and [facility] notes/diagnostics/labs, discussing the care plan with our care team that includes social work, PT/OT, pharmacy, RT, long term and documenting my impressions and plan in the medical record. Subjective Time Seen by Provider: 09:59 Date Seen: 10/24/24 Interval history: Uche is feeling better today. His daughter was on the phone and his came in the room while we were talking. 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 We discussed the results of the CT scan today and echocardiogram. Exam Narrative: Exam Narrative: General: No acute distress. Awake, alert, oriented x3. No pallor. No jaundice. Oropharynx: Clear. Mucous membranes moist. Cardiovascular: Regular rate and rhythm. No murmurs, gallops, or rubs. Respiratory: Course with rhonchi at the left lower lung field. No wheezes. Abdomen: Bowel sounds present. Soft, nondistended, nontender. Const: Vital Signs, click to edit/add: Vital Signs - 24 hr 10/23/24 21:25 10/24/24 00:27 10/24/24 01:17 Temperature 97.2 F L Pulse Rate 49 L Pulse Rate [Apical ] 57 L Respiratory Rate 22 Blood Pressure [Le ft Arm] Blood Pressure [Le ft Radial Artery] 148/85 H Pulse Oximetry 91 91 Oxygen Delivery Me thod Nasal Cannula Nasal Cannula Oxygen Flow Rate 1 1 10/24/24 01:33 10/24/24 04:39 10/24/24 07:37 Temperature 97 F L Pulse Rate 50 L Pulse Rate [Apical ] 57 L 59 L Respiratory Rate 24 Blood Pressure [Le ft Arm] Blood Pressure [Le ft Radial Artery] 146/96 H Pulse Oximetry 91 91 Oxygen Delivery Me thod Nasal Cannula Oxygen Flow Rate 1 10/24/24 07:42 10/24/24 07:42 10/24/24 07:42 Temperature 96.7 F L Pulse Rate Pulse Rate [Apical ] 58 L Respiratory Rate 24 24 Blood Pressure [Le ft Arm] 137/84 Blood Pressure [Le ft Radial Artery] Pulse Oximetry 91 91 91 Oxygen Delivery Me thod Nasal Cannula Nasal Cannula Oxygen Flow Rate 1 1 10/24/24 11:25 10/24/24 15:00 Temperature 97.0 F L Pulse Rate 55 L Pulse Rate [Apical ] 64 Respiratory Rate 22 Blood Pressure [Le ft Arm] 151/91 H Blood Pressure [Le ft Radial Artery] Pulse Oximetry 92 Oxygen Delivery Me thod Nasal Cannula Oxygen Flow Rate 1 Labs Labs: Ordering Physician: Belia Medrano M.D. Date of Service: 10/24/24 Procedure(s): CT angio chest PE protocol Accession Number(s): [id number] cc: Belia Medrano M.D.; Provider,Not a Local~ For Patients: As a result of the 21st Century Cures Act, medical imaging exams and procedure reports are released immediately into your electronic medical record. You may view this report before your referring provider. If you have questions, please contact your health care provider. Indication: PERSISTENT HYPOXIA POSSIBLE COPD OR FIBROSIS Technique: CTA chest, pulmonary embolism protocol, utilizing 95 mL Isovue 370 Comparison: None Findings: Motion degraded exam. No thyroid nodules. No thoracic lymphadenopathy. The heart is normal in size. No CT evidence of right heart strain. No pericardial effusion. LAD calcifications. The thoracic aorta and pulmonary artery are normal in caliber. There is no pulmonary embolism. There is no focal airspace consolidation, pleural effusion, or pneumothorax. Small cluster of likely infectious/inflammatory pulmonary nodules/small ground-glass opacities seen in the posterior aspect of the right upper lobe (series number 4, image [id number]). Calcified granuloma in the right middle lobe [id number] centrilobular and paraseptal emphysematous changes with upper lobe predominance. Minimal bibasilar linear atelectasis/scarring. The airways are clear. The imaged upper abdomen is unremarkable. The soft tissues and bones are unremarkable. Impression: 1. No pulmonary embolism. 2. Small cluster of likely infectious/inflammatory pulmonary nodules/small ground-glass opacities seen in the posterior aspect of the right upper lobe (series number 4, image [id number]). Recommend CT chest in approximately 10-12 weeks to assess for resolution. 3. [id number] centrilobular and paraseptal emphysematous changes with upper lobe predominance. Please note that all CT scans at this facility use dose modulation, iterative reconstruction, and/or weight-based dosing when appropriate to reduce radiation dose to as low as reasonably achievable. Dictated by Austin Arellano MD @ 10/24/2024 11:28:10 AM (Electronically Signed) 10/24/2024 echocardiogram: Normal LV size, normal wall thickness, normal global systolic function, calculated EF of 60%. Right ventricular cavity size is normal, global RV function is normal. Normal left atrium size. The aortic valve is sclerotic, no stenosis and no regurgitation. The mitral valve is normal, trace mitral regurgitation. Tricuspid valve is normal. The aortic sinus is dilated with a maximal diameter of 4.3 cm. No pericardial effusion.
--- NOTE | 2024-10-24 22:26 | PC.NURSE ---
End of Shift: Patient pleasant and cooperative. Afebrile. O2 sats 90-95% on 1L NC. Up independently in room. States shortness is much improved. Tolerating regular diet with no nausea. PRN Tylenol x1 for headache.
[2024-10-25 03:00] VITALS: BP 137/84; PULSE 49; RESP 18; TEMP 36.8; O2SAT 98
[2024-10-25] MEDS: 0.9 % SODIUM CHLORIDE 250 ml IV (04:36)
[2024-10-25] MEDS: cefTRIAXone 2 GM in 0.9 % SODIUM CHLORIDE Mini-bag 100 ML IVPB (04:36)
[2024-10-25 07:00] VITALS: BP 128/83; PULSE 57; PULSE 58; PULSE 65; RESP 18; TEMP 36.4; O2SAT 95
[2024-10-25] MEDS: predniSONE 20 MG TABLET 40 MG PO (07:30)
[2024-10-25] MEDS: DOXYCYCLINE HYCLATE 100 MG PO (08:52)
[2024-10-25] MEDS: OSELTAMIVIR PHOSPHATE 75 MG CAPSULE PO (08:52)
[2024-10-25] MEDS: SODIUM CHLORIDE 0.9 % (FLUSH) 10 ML SYRINGE 5 ML IVF (08:52)
--- NOTE | 2024-10-25 09:40 | RESP.RT ---
Pt seen this AM for oxygen qualification. Pt walked for 3 minutes, followed by some Cardiac calisthenics. SPO2, remained at 90% RR 20 with the exercise, decreased to 16. HR stable at 76 throughout the testing. Home oxygen is not indicated. Follow up with pulmonology for full PFTs is recommended.
--- NOTE | 2024-10-25 10:40 | PM.DS1 ---
DS: Providers Provider Time Seen by Provider: 08:20 Date Seen: 10/25/24 Date of admission: 10/22/24 10:37 Primary care physician: Not a Local Provider Admitting Clinician: Ary Ralph MD Consults: 10/22/24 08:45 Consult to Respiratory Therapy [CONS] Routine Comment: Reason(s) for RT Consult:: Consult Attending Physician on discharge: Belia Medrano MD Date of Discharge: 10/25/24 DS: Diagnosis Discharge Diagnosis (1) Acute hypoxemic respiratory failure: Status: Acute Problem details: - likely multifactorial including influenza a, possible pneumonia, possible undiagnosed COPD (patient is a current 2 pack-a-day smoker for 40 years) - respiratory consult - supplemental oxygen to keep O2 sats around 90%, I reviewed his blood gas 1:00 a.m. which does not show any hypercapnia. Monitor for hypercapnia or symptoms of hypercapnia - Continue prn nebs - 10/24 improving, may need home oxygen due to chronic dyspnea and findings of emphysema suspect secondary to chronic tobacco use - 10/25 resolved, off oxygen overnight. Satted well with activity today. D/ch home (2) Influenza with pneumonia: Status: Suspected Problem details: No consolidations seen on x-ray, but patient is persistently hypoxic. Per patient this is day 7 of illness. White count is within normal limits and procalcitonin is not elevated. He was started on ceftriaxone and doxycycline overnight for presumed pneumonia. I suspect this was a viral pneumonia, not bacterial, regardless, was treated with IV antibiotics for total of 4 days. (3) Influenza A: Status: Acute Problem details: - continue tamiflu x 5 days total. (4) Nicotine abuse: Status: Acute Problem details: - 2PPD x 40 years - stopped smoking when became ill last week. - 10/24 spoke with patient and the (who also smokes) about tobacco cessation, potential medications, prescription and [id number] for tobacco cessation, changing habits and routines, and finding alternative things to do when having cravings. Spent 12 minutes discussing tobacco cessation. - 10/25 patient has identified several triggers for symptoms and has a plan to used small sized Twizzlers to substitute while quitting. (5) Dilatation of aortic sinus of Valsalva: Status: Acute Problem details: -10/24/2024 4.3 cm on echocardiogram, annual outpatient follow-up, patient aware (6) Emphysema lung: Status: Acute Problem details: - COPD, 80 pack-year smoker - Consider outpatient pulmonology referral, PFTs. Will have patient establish with PCP DS: Summary Hospital Course Hospital Course: Per H&P: Dao Malhotra is seen as an Interactive Telehealth visit. Dao Malhotra is a 63 year old male with history significant for smoking 2 packs/day x 40 years, who does not regularly follow-up with a doctor, presenting to emergency department with 2 weeks history of cough and shortness of breath. Patient reports his symptoms initially started with fever chills and cough about 2 weeks ago. He says initially the cough was pretty intense however currently is more dry. He says he noticed fever and chills in the first 2 days however has been afebrile since then. He says I have quit smoking since I got sick. He did go to urgent care on October 18, 2024 with complaints of cough and shortness of breath. At that time he was started on prednisone 40 mg, azithromycin and inhaler. He states his shortness of breath continued to get worse. He was also having chest pain with cough. He came into the emergency department for further evaluation. In the ER he was noted to be hypoxic with pulse ox in 85%. He was placed on 2 L oxygen and after that he felt a lot better. He was also given DuoNebs, Solu-Medrol in the emergency department. Workup in the emergency department showed WBC 10.5, hemoglobin 14.9, hematocrit 43.8, platelets 345. Blood gas showed VBG with pH of 7.461, pCO2 33, pO2 42, BMP showed sodium 139, potassium 3.9, chloride 107, bicarb 22, anion gap 10, BUN 26, creatinine 1.0, glucose 113, calcium 9.2, CRP 2.6, proBNP 221. His nasal swab came back positive for influenza A and negative for SARS-CoV-2, influenza B, RSV. Chest x-ray showed mild bibasilar atelectasis. No consolidation. Hospitalist service was asked admit the patient due to new onset hypoxia and ongoing tachypnea and shortness of breath. Bill remained dyspneic and mildly hypoxic. As more of his pulmonary risk factors became evident, and it was looking like he may require home oxygen, additional workup was done which included CT chest for PE and ECHO, results are below. He was then able to wean off oxygen that evening and is in improved condition for discharge home today. Time Spent with Patient Time attestation: Total time spent providing and/or coordinating discharge services: Today I spent 35 minutes seeing the patient, discussing with the patient and his daughter (who was on the phone), reviewing [facility] and [facility] notes/diagnostics/labs, discussing the care plan with our care team that includes social work, PT/OT, pharmacy, RT, halfway and documenting my impressions and discharge orders in the medical record. Exam Narrative: Exam Narrative: General: No acute distress. Awake, alert, oriented x3. No pallor. No jaundice. Oropharynx: Clear. Mucous membranes moist. Cardiovascular: Regular rate and rhythm. No murmurs, gallops, or rubs. Respiratory: Clear to auscultation bilaterally. No crackles or wheezes. Abdomen: Bowel sounds present. Soft, nondistended, nontender. Extremities: No edema. Const: Vital Signs, click to edit/add: Vital Signs - 24 hr 10/24/24 11:25 10/24/24 15:00 10/24/24 15:00 Temperature 97.0 F L Pulse Rate 55 L Pulse Rate [Apical ] 64 Pulse Rate [Pulse Oximeter] Respiratory Rate 22 Blood Pressure [Le ft Arm] 151/91 H Pulse Oximetry 92 95 Oxygen Delivery Me thod Nasal Cannula Nasal Cannula Oxygen Flow Rate 1 1 10/24/24 15:00 10/24/24 15:00 10/24/24 19:00 Temperature 97.1 F L 97.3 F L Pulse Rate Pulse Rate [Apical ] 50 L 50 L 65 Pulse Rate [Pulse Oximeter] Respiratory Rate 22 22 20 Blood Pressure [Le ft Arm] 128/78 130/73 Pulse Oximetry 95 92 Oxygen Delivery Me thod Nasal Cannula Nasal Cannula Oxygen Flow Rate 1 1 10/24/24 23:00 10/24/24 23:00 10/24/24 23:00 Temperature 97.6 F Pulse Rate 42 L Pulse Rate [Apical ] Pulse Rate [Pulse Oximeter] 50 L Respiratory Rate 16 16 Blood Pressure [Le ft Arm] 128/87 Pulse Oximetry 96 96 Oxygen Delivery Me thod Room Air Room Air Oxygen Flow Rate 1 10/24/24 23:00 10/25/24 03:00 10/25/24 07:00 Temperature 98.2 F Pulse Rate 58 L Pulse Rate [Apical ] 65 Pulse Rate [Pulse Oximeter] 50 L 49 L Respiratory Rate 16 18 Blood Pressure [Le ft Arm] 137/84 Pulse Oximetry 98 Oxygen Delivery Me thod Room Air Oxygen Flow Rate 10/25/24 07:00 10/25/24 07:00 10/25/24 07:00 Temperature 97.6 F Pulse Rate Pulse Rate [Apical ] 65 Pulse Rate [Pulse Oximeter] 57 L 57 L Respiratory Rate 18 18 18 Blood Pressure [Le ft Arm] 128/83 Pulse Oximetry 95 95 Oxygen Delivery Me thod Room Air Room Air Oxygen Flow Rate DS: Data Data Completed and Pending Completed studies during hospitalization: 10/22/2024 EKG: Sinus bradycardia, 59 beats per minute, otherwise normal EKG. Ordering Physician: Marcia Khan M.D. Date of Service: 10/22/24 Procedure(s): XR chest 2V Accession Number(s): [id number] cc: Marcia Khan M.D.; Provider,Not a Local~ For Patients: As a result of the Cures Act, medical imaging exams and procedure reports are released immediately into your electronic medical record. You may view this report before your referring provider. If you have questions, please contact your health care provider. INDICATION: Shortness of breath. TECHNIQUE: Chest 2 views. COMPARISON: 10/18/2024. FINDINGS: Cardiovascular and mediastinum: Heart size and vasculature are normal in caliber and appearance. Lungs and pleural spaces: Mild bibasilar atelectasis. No consolidation. No pleural effusion or pneumothorax. Bones and soft tissues: Unremarkable for age. IMPRESSION: Mild bibasilar atelectasis. No consolidation. Dictated by Paolo Lehman MD @ 10/22/2024 1:36:07 AM (Electronically Signed) Ordering Physician: Belia Medrano M.D. Date of Service: 10/24/24 Procedure(s): CT angio chest PE protocol Accession Number(s): [id number] cc: Belia Medrano M.D.; Provider,Not a Local~ For Patients: As a result of the Cures Act, medical imaging exams and procedure reports are released immediately into your electronic medical record. You may view this report before your referring provider. If you have questions, please contact your health care provider. Indication: PERSISTENT HYPOXIA POSSIBLE COPD OR FIBROSIS Technique: CTA chest, pulmonary embolism protocol, utilizing 95 mL Isovue 370 Comparison: None Findings: Motion degraded exam. No thyroid nodules. No thoracic lymphadenopathy. The heart is normal in size. No CT evidence of right heart strain. No pericardial effusion. LAD calcifications. The thoracic aorta and pulmonary artery are normal in caliber. There is no pulmonary embolism. There is no focal airspace consolidation, pleural effusion, or pneumothorax. Small cluster of likely infectious/inflammatory pulmonary nodules/small ground-glass opacities seen in the posterior aspect of the right upper lobe (series number 4, image [id number]). Calcified granuloma in the right middle lobe [id number] centrilobular and paraseptal emphysematous changes with upper lobe predominance. Minimal bibasilar linear atelectasis/scarring. The airways are clear. The imaged upper abdomen is unremarkable. The soft tissues and bones are unremarkable. Impression: 1. No pulmonary embolism. 2. Small cluster of likely infectious/inflammatory pulmonary nodules/small ground-glass opacities seen in the posterior aspect of the right upper lobe (series number 4, image [id number]). Recommend CT chest in approximately 10-12 weeks to assess for resolution. 3. [id number] centrilobular and paraseptal emphysematous changes with upper lobe predominance. Please note that all CT scans at this facility use dose modulation, iterative reconstruction, and/or weight-based dosing when appropriate to reduce radiation dose to as low as reasonably achievable. Dictated by Austin Arellano MD @ 10/24/2024 11:28:10 AM (Electronically Signed) 10/24/2024 echocardiogram: Normal LV size, normal wall thickness, normal global systolic function, calculated EF of 60%. Right ventricular cavity size is normal, global RV function is normal. Normal left atrium size. The aortic valve is sclerotic, no stenosis and no regurgitation. The mitral valve is normal, trace mitral regurgitation. Tricuspid valve is normal. The aortic sinus is dilated with a maximal diameter of 4.3 cm. No pericardial effusion. Discharge Plan Discharge Disposition: Home, Self-Care Date of Admission: 10/22/24 10:37 Attending Provider on Discharge: Belia Medrano Primary Care Provider: Provider,Not a Local Condition: Improved Anticipated Discharge Date/Time: 10/25/24 11:01 Discharge Medications: New cefdinir 300 mg capsule 300 mg PO BID Qty: 10 0RF oseltamivir 75 mg Capsule 75 mg PO BID 2 Days Qty: 3 0RF prednisone 20 mg Tablet 40 mg PO DAILYWM 2 Days Qty: 4 0RF Continued albuterol sulfate 90 mcg/actuation HFA aerosol inhaler 2 puff inhalation Q6H PRN (Reason: shortness of breath or wheezing) Qty: 8.5 0RF Discontinued azithromycin 250 mg tablet See Rx Instructions PO .COMPLEX Qty: 6 0RF Rx Instructions: For 250 mg dose pack: take 500 mg today (day 1), then 250 mg for 4 days (days 2-5) PO prednisone 20 mg tablet 40 mg PO DAILY Discharge Orders: Discharge Order (Routine); Ordered 10/25/24 Ordered By: Belia Medrano Patient Education: Oseltamivir (By mouth), Cefdinir (By mouth), Prednisolone (By mouth), Influenza (DC), Emphysema (DC) Additional Instructions: Establish at [facility] clinic or Thursday. Stop all tobacco use. Use strategies we discussed to avoid or deal with cravings/triggers. Activity Level: Activity as Tolerated Discharge Diet: Regular Follow Up Appointments: Provider,Not a Local [Primary Care Provider] - Forms: [employer] Info Instructions, Work/School Release
--- NOTE | 2024-10-25 11:09 | PC.NURSE ---
Pt alert, oriented and vitally stable. Trialed RA overnight, sats remained above 95%. Pt moves independently, tolerates well. Crackles noted upon lung auscultation. Pt in bed, call light within reach. ?
== END 2024-10-25 11:48 | disposition home or self-care (01) | DRG 139 ==
LOC: ED 02:20 → MEDSURG 02:42
PROVIDERS: Family Medicine; Admitting Provider Internal Medicine; Emergency Provider Emergency Medicine; Visit Provider Internal Medicine
DX: J10.00 Influenza due to other identified influenza virus with unspecified type of pneumonia (principal); J10.1 Influenza due to other identified influenza virus with other respiratory manifestations; J96.01 Acute respiratory failure with hypoxia; F17.210 Nicotine dependence, cigarettes, uncomplicated; J43.9 Emphysema, unspecified; I77.819 Aortic ectasia, unspecified site
CPT/HCPCS: 36415; 71046; 71275; 80048; 82803; 83880; 84145; 84484; 85025; 85379; 86140; 87631; 93005; 93306; 94664; 94761; 99284; A9270; G0378; J0696; J1644; J2919; J7050; J7512; Q9967; S4990